=== PATIENT | male | born 1955 | race Caucasian/White ===

== ENCOUNTER → 2016-08-22 | Outpatient (CLI) | payer OTHER ==
[~2016-08-22] MED LIST: ASPI81TA25 PO; LORA10CA2 PO; SILO4CAP PO
[2016-08-22 13:33] LABS: PROSTATE SPECIFIC ANTIGEN 3.79 ng/ml (0.000-4.000); THYROID STIMULATING HORMONE 3.26 uIu/ml (0.300-4.500)
== END | disposition home or self-care (01) ==
LOC: C.LAB1850 11:36
PROVIDERS: ATTEND Internal Medicine
DX: R73.9 Hyperglycemia, unspecified (principal); R97.20 Elevated prostate specific antigen [PSA]

== ENCOUNTER → 2016-11-24 | Outpatient (CLI) | payer OTHER ==
[2016-11-24 17:39] LABS: BLOOD UREA NITROGEN 28 mg/dl (7-18); BUN/CREATININE RATIO 25.3 (10-20)
[2016-11-24 17:44] LABS: FREE PSA 0.55 ng/ml
== END | disposition home or self-care (01) ==
LOC: C.LAB1850 16:14
PROVIDERS: ATTEND Urology
DX: N42.31 Prostatic intraepithelial neoplasia (principal)

== ENCOUNTER → 2018-01-29 | Outpatient (CLI) | payer OTHER ==
[2018-01-29 11:18] LABS: BLOOD UREA NITROGEN 24 mg/dl (7-18); CREATININE 0.98 mg/dl (0.60-1.40)
== END | disposition home or self-care (01) ==
LOC: C.LAB1850 09:46
PROVIDERS: ATTEND Urology
DX: R97.20 Elevated prostate specific antigen [PSA] (principal); N40.1 Benign prostatic hyperplasia with lower urinary tract symptoms

== ENCOUNTER 2025-04-25 16:00 | Inpatient (IN) ==
--- NOTE | 2025-04-25 16:10 | Emergency Department Note ---
Impression & Plan Atrial fibrillation with rapid ventricular response, Elevated troponin ED Provider Note NAME: MAUREEN FRANCISCO AGE: 69 SEX: M : 1955 ARRIVES VIA: Ambulance INFORMANT: Patient ED PROVIDER(S): Miah Valerio DO CHIEF COMPLAINT: Palpitations HPI: Patient is a 69-year-old male with a past medical history of A-fib, hyperglycemia, palpitations, who presents to the ER for feeling his heart racing and irregularly. He notes he that he has a history of A-fib. For the past several weeks every third day he will feel fullness in his stomach and, up into his chest. He will feel his heart racing and he will check no be irregular. Sometimes he feels dizzy. He was at the PCPs office was sent in. Denies any headache or change in vision. No chest pain or shortness of breath currently. Denies any belly pain now. No nausea, vomiting, or diarrhea. No dysuria, urgency, or frequency. ADDITIONAL HISTORY OBTAINED: Per HPI Chronic Medical/Social Conditions Affecting Care: Per HPI PAST MEDICAL HISTORY:See Below PAST SURGICAL HISTORY:See Below FAMILY HISTORY:See Below SOCIAL HISTORY:See Below HOME MEDICATIONS:See Below ALLERGIES:See Below VITALS:See Below PHYSICAL EXAMINATION: GENERAL: Sitting up in bed, alert, well appearing, well nourished, no distress, non-toxic EYE EXAM: normal conjunctiva. OROPHARYNX: no exudate, no erythema, lips, buccal mucosa, and tongue normal and mucous membranes are moist NECK: supple, no nuchal rigidity, no adenopathy, non-tender LUNGS: Clear to auscultation. Normal chest wall mechanics HEART: Tachycardic and irregular regular, S1 normal and S2 normal ABDOMEN: abdomen soft, non-tender, normo-active bowel sounds, no masses, no rebound or guarding. UPPER EXTREMITIES: upper extremities are grossly normal. Radial pulses are equal bilaterally LOWER EXTREMITIES: No pitting edema. Calves are equal bilaterally NEURO EXAM: Normal sensorium, cranial nerves II-XII grossly intact, normal speech, no gross weakness of arms, no gross weakness of legs. MEDICAL DECISION MAKING: Patient is a 69-year-old male who presents ER with a past medical history of palpitations, A-fib not anticoagulated. IV was established blood work is obtained. Labs show no significant leukocytosis or anemia. BMP with slightly elevated chloride at 108. LFTs bilirubin is unremarkable. Troponin mildly elevated at 40. Lipase is normal. Chest x-ray was clean. EKG was consistent with A-fib with RVR. He was placed on Cardizem drip and given a bolus of 10. Heart rate trended down slightly to the 130s. He was rebolused with Cardizem and drip was titrated up to 10 at this point. Case was discussed with hospitalist for further evaluation management treatment. Consults/Care Managements Discussions: Per [facility] Triage Nursing notes reviewed. Limited review of prior medical records performed Vital Signs: reviewed and remarkable for tachycardic Differential diagnosis: Cardiac ischemia, aortic dissection, pulmonary embolism, pneumothorax, pneumonia, pericarditis, myocarditis, esophageal rupture, GERD, cholecystitis, pancreatitis, musculoskeletal, as well as other pathologies. ER treatment provided: See below Diagnostics interpreted by me include EKG and cardiac monitoring as listed below: -Cardiac Monitoring: An order was placed for continuous cardiac monitoring. The monitor shows a rate of 144 and A-fib rhythm. -ECG:A-fib rate of 144 Normal axis T wave inversion in the high lateral as well as septal leads QTc 436 with -Laboratory studies:Interpreted by me as stated above in MDM and shown below. Imaging studies: Xrays: As interpreted by me: Portable AP upright 1 view of the chest shows no focal trait CTs show: none Procedures:none Critical Care: I have personally spent 35 minutes of critical care time in the direct management of this patient. This includes bedside care, interpretation of diagnostic studies, and testing, discussion with consultants, patient, and family members, and other required patient management activities. This 35 minutes is in excess of all separately billable procedures. Past Med/Surg History Problem List (Updated 04/25/25 @ 19:25 by Miah Valerio DO) Elevated troponin (Acute) Atrial fibrillation with rapid ventricular response (Acute) Atrial fibrillation Hyperacusis, right ear Asymmetrical right sensorineural hearing loss SNHL (sensorineural hearing loss) Bilateral tinnitus Impacted cerumen of right ear History of oral surgery (Chronic) Acid reflux (Chronic) Benign localized prostatic hyperplasia with lower urinary tract symptoms (LUTS) (Chronic) Coronary artery disease (Chronic) Decreased hearing (Chronic) Deviated nasal septum (Chronic) Elevated prostate specific antigen (PSA) (Chronic) High grade prostatic intraepithelial neoplasia (Chronic) History of atrial fibrillation (Chronic) Hyperglycemia (Chronic) Hypertrophy of both inferior nasal turbinates (Chronic) Mitral regurgitation (Chronic) Palpitations (Chronic) Mitral valve prolapse (Chronic 02/06/13) Medical History (Updated 04/25/25 @ 19:25 by Miah Valerio DO) Abnormal TSH Cerumen impaction Encounter for screening for lipoid disorders Family History Father Prostate cancer Atrial fibrillation Grandfather Prostate cancer Grandfather No problems noted. Grandmother Brain cancer Brother Atrial fibrillation Other No family history of adverse response to anesthesia No family history of bleeding disorder Denies family history of Colon cancer Ovarian cancer Myocardial infarction Breast cancer Colorectal cancer Social History Smoking Status: Never smoker Second Hand Exposure: No; Do You Dip or Chew Tobacco: No; Hx Alcohol Use: No Hx Substance Use: No Preferred Language: Barbadian Communication Ability: Effective Visual Impairment: No Limitations Hearing Ability: Normal Client Care Coordinator Required: No Beliefs That Will Affect Care: None marital status: Single Current Living Situation: Alone current occupational status: employed current occupation: [employer] Supervisor Other Information That Helps Us Care for You: No Feels Safe at Home: Yes Safety Concerns: Feels Safe At This Time Assistive Devices: Glasses Allergies Allergies Allergy/AdvReac Type Severity Reaction Status Date / Time No Known Allergies Allergy Verified 04/25/25 17:10 Home Meds Home Medications Medication Instructions Recorded Confirmed alfuzosin 10 mg tablet,extended 10 mg PO HS 04/25/25 04/25/25 release 24 hr finasteride 5 mg tablet 5 mg PO HS 04/25/25 04/25/25 tadalafil 20 mg tablet (Cialis) 20 mg PO DIRECTED PRN sexual 04/25/25 04/25/25 activity vit C 250 mg-vit E 90 mg-zinc 40 1 tab PO BID 04/25/25 04/25/25 mg-copper 1 [id number] capsule (PreserVision AREDS-2) Results & Data (ED) Vital Signs Vital Signs - 24 hr 04/25/25 16:06 04/25/25 16:08 04/25/25 16:10 Temperature 36.5 C Temperature Source Oral Pulse Rate 147 H 143 H Pulse Rate [Apical] Respiratory Rate 15 Respiratory Effort / Characteristics Non-Labored Spontaneous Respiratory Depth Normal Blood Pressure 136/98 Blood Pressure [Right Arm] Blood Pressure Mean 110 Blood Pressure Mean [Right Arm] Pulse Oximetry 96 98 Oxygen Delivery Method Room Air Room Air Sepsis Recent Fever Within 48 Hours No Sepsis New/Unexplained Change in Mental Status N/A Sepsis Action Taken by Nursing No Action Required 04/25/25 17:00 Temperature Temperature Source Pulse Rate Pulse Rate [Apical] 144 H Respiratory Rate 16 Respiratory Effort / Characteristics Respiratory Depth Blood Pressure Blood Pressure [Right Arm] 123/92 Blood Pressure Mean Blood Pressure Mean [Right Arm] 102 Pulse Oximetry Oxygen Delivery Method Sepsis Recent Fever Within 48 Hours Sepsis New/Unexplained Change in Mental Status Sepsis Action Taken by Nursing Laboratory Data 04/25/25 16:18 04/25/25 16:18 Lab Results 04/25/25 Range/Units 16:18 WBC 7.54 (4.8-10.8) K/ul RBC 4.79 (4.70-6.10) M/uL Hgb 16.2 (14.0-18.0) g/dL Hct 45.1 (42.0-52.0) % MCV 94.2 (80.0-100.0) fL MCH 33.8 (25.0-34.0) pg MCHC 35.9 (32.0-36.0) g/dL RDW Std Deviation 39.6 (36.4-46.3) fL RDW Coeff of Aleshia 11.5 (11.5-14.5) % Plt Count 220 (130-400) K/uL MPV 10.8 (9.4-12.4) fL Immature Gran % (Auto) 0.5 % Neut % (Auto) 75.2 % Lymph % (Auto) 15.1 % Dewitt % (Auto) 8.4 % Eos % (Auto) 0.3 % Baso % (Auto) 0.5 % Neut # (Auto) 5.67 (1.40-6.50) K/uL Lymph # (Auto) 1.14 L (1.20-3.40) K/uL Dewitt # (Auto) 0.63 H (0.11-0.59) K/uL Eos # (Auto) 0.02 (0.00-0.50) K/uL Baso # (Auto) 0.04 (0.00-0.20) K/uL Immature Gran # (Auto) 0.04 (0.01-0.20) K/uL Sodium 142 (136-145) mmol/L Potassium 4.4 (3.5-5.1) mmol/L Chloride 108 H (98-107) mmol/L Carbon Dioxide 30 (21-32) mmol/L Anion Gap 4 (3-11) BUN 26 H (6-23) mg/dl Creatinine 1.03 (0.6-1.4) mg/dl Est Cr Clr Drug Dosing 78.3 ml/min eGFR 78.63 BUN/Creatinine Ratio 25.2 H (10-20) Glucose 115 H (70-99(Fasting)) mg/dl Calcium 9.4 (8.6-10.3) mg/dl Total Bilirubin 0.5 (0.2-1.0) mg/dl AST 25 (13-39) U/L ALT 20 (7-52) U/L Alkaline Phosphatase 49 (34-104) U/L Troponin I High Sens 39.9 H (0-20) pg/ml Total Protein 6.7 (6.0-8.3) gm/dl Albumin 4.0 (3.4-5.0) gm/dl Globulin 2.7 (2.5-4.0) gm/dl Albumin/Globulin Ratio 1.5 (0.9-2) Lipase 16 (11-82) U/L Administered Medications Magnesium Sulfate/Dextrose (Magnesium Sulfate / D5w) 1 gm in 100 mls @ 50 mls/hr IV ONE ONE Stop: 04/25/25 20:26 Last Admin: 04/25/25 18:39 Dose: 50 mls/hr Documented By: RAINA Metoprolol Tartrate (Metoprolol Tartrate 1 Mg/Ml Vial) 5 mg IV Q4 PRN PRN Reason: sbp > 185, dbp >95, HR >120 Stop: 05/25/25 18:26 Last Admin: 04/25/25 18:39 Dose: 5 mg Documented By: RAINA Discontinued Medications Diltiazem HCl (Diltiazem Hcl 5 Mg/Ml 5 Ml Vial) 10 mg IV NOW STA Stop: 04/25/25 16:07 Last Admin: 04/25/25 16:16 Dose: 10 mg Documented By: DEMETRIS Co-signed By: MR Diltiazem HCl (Diltiazem Hcl 5 Mg/Ml 5 Ml Vial) 10 mg IV NOW STA Stop: 04/25/25 17:02 Last Admin: 04/25/25 17:10 Dose: 10 mg Documented By: haydee Co-signed By: rory Diltiazem HCl 125 mg/ Dextrose 125 mls @ 5 mls/hr IV .Q24H JASIEL; Protocol Stop: 05/25/25 16:14 Last Titration: 04/25/25 18:31 Dose: Infused Documented By: RAINA Co-signed By: SMITHA Titration: 04/25/25 17:07 Dose: 10 mg/hr, 10 mls/hr Documented By: haydee Co-signed By: rory Admin: 04/25/25 16:24 Dose: 5 mg/hr, 5 mls/hr Documented By: DEMETRIS Co-signed By: haydee Miscellaneous (Stat Iv Infusion Titration Per Protocol) 1 each N/A NOW STA Stop: 04/25/25 16:07 Last Admin: 04/25/25 16:28 Dose: Not Given Documented By: DEMETRIS Imaging Data Radiologist's Impression: Chest X-Ray 04/25/25 16:06 Clinical History: Chest pain Technique: A frontal view of the chest was obtained Findings: There are no confluent pulmonary infiltrates. The heart size is within normal limits. No pleural effusion or pneumothorax is seen. There is no definite pulmonary nodule. No fracture is noted. No foreign body is seen Impression: No active disease Electronically signed by Alexander Rodríguez 04-25-2025 6:07 PM Discharge Plan Visit Data Chief Complaint: Cardiac Assessment Stated Complaint: Cardiac Assessment ED Provider: Miah Valerio Discharge Problem: Atrial fibrillation with rapid ventricular response, Elevated troponin Patient Disposition: Admitted As Inpatient Condition: Critical Discharge Instructions Interventions: ED Discharge Assessment Last Done: 04/25/25 18:09
[2025-04-25] MEDS: STAT IV Infusion **Titration per Protocol STA (16:28)
[2025-04-25 16:34] LABS: Hematocrit (blood only) 45.1 % (42.0-52.0); Hemoglobin 16.2 g/dL (14.0-18.0); Immature Granulocytes # (auto) 0.04 K/uL (0.01-0.20); Immature Granulocytes % (auto) 0.5 %; Mean Corpuscular Hemoglobin 33.8 pg (25.0-34.0); Mean Corpuscular Volume 94.2 fL (80.0-100.0); Platelet Count 220 K/uL (130-400); RDW Standard Deviation 39.6 fL (36.4-46.3); Red Blood Count 4.79 M/uL (4.70-6.10); White Blood Count 7.54 K/ul (4.8-10.8)
[2025-04-25 16:52] LABS: Alanine Aminotransferase 20.0 U/L (7-52); Albumin Globulin Ratio 1.5 (0.9-2); Albumin Level 4.0 gm/dl (3.4-5.0); Alkaline Phosphatase 49.0 U/L (34-104); Anion Gap 4.0 (3-11); Bilirubin,Total 0.5 mg/dl (0.2-1.0); Blood Urea Nitrogen 26.0 mg/dl (6-23); Calcium 9.4 mg/dl (8.6-10.3); Carbon Dioxide 30.0 mmol/L (21-32); Chloride 108.0 mmol/L (98-107); Creatinine Clr Calc Pharmacy 78.3 ml/min; Globulin 2.7 gm/dl (2.5-4.0); Glucose 115.0 mg/dl (70-99(Fasting)); Lipase 16.0 U/L (11-82); Potassium 4.4 mmol/L (3.5-5.1); Sodium 142.0 mmol/L (136-145); Total Protein 6.7 gm/dl (6.0-8.3)
--- NOTE | 2025-04-25 17:23 | History & Physical Report ---
Date of Service April 25, 2025 Assessment & Plan (1) Atrial fibrillation: (2) Benign localized prostatic hyperplasia with lower urinary tract symptoms (LUTS): (3) SNHL (sensorineural hearing loss): Plan 69-year-old male with history of atrial fibrillation prevention with a rapid ventricular rate and fatigue and dizziness. This is been prolonged from his typical events. #Atrial fibrillation. Patient was given diltiazem in the emergency department without much improvement. Patient will be converted to metoprolol to tartrate 25 twice daily with as needed IV metoprolol for backup. Consideration of using intravenous digoxin if the patient has no improvement overnight. Patient will also have his magnesium checked his TSH checked and be given a gram of magnesium. Patient is started on therapeutic anticoagulation although his Parviz vas score is low he does seem to have more paroxysmal atrial fibs and places him at risk for thromboembolism. The patient is ordered a echocardiogram and cardiology consult will be considered if this is more persistent and stubborn #Elevated troponin this is likely demand ischemia in the face of his rapid rate. He has no cardiac symptoms or changes on EKG #BPH patient continues on fluvastatin and finasteride DVT prevention is therapeutic heparin dosing History of Present Illness Primary Care Provider: Tre Hopper MD 69-year-old male with a past medical history of A-fib, hyperglycemia, palpitations, who presents to the ER for feeling his heart racing and irregular. He notes he that he has a history of A-fib with a brief hospital stay in 2012.. Patient is having consistent recurrent palpitations as he feels his atrial fibrillation usually in the morning lasting 2 hours resolving with rest. Patient states his family has a history of atrial fibrillation has had 2 brothers who have had cardiac ablation but he cannot recall where they had that done. The patient has not been on any anticoagulation in the past but does recount a story where his father was taken off anticoagulation for atrial fibrillation and promptly of his stroke. patient denies any recent bleeding or bruising on the melena he has no chest pain associate with his atrial fibrillation but he does complain of some dizziness In the emergency department EKG shows atrial fibrillation versus flutter rate of 142, chest x-ray was without heart failure Allergies Allergy/AdvReac Type Severity Reaction Status Date / Time No Known Allergies Allergy Verified 04/25/25 17:10 Home Medications Medication Instructions Recorded Confirmed Type alfuzosin 10 mg tablet,extended 10 mg PO HS 04/25/25 04/25/25 History release 24 hr finasteride 5 mg tablet 5 mg PO HS 04/25/25 04/25/25 History tadalafil 20 mg tablet (Cialis) 20 mg PO DIRECTED PRN sexual 04/25/25 04/25/25 History activity vit C 250 mg-vit E 90 mg-zinc 40 1 tab PO BID 04/25/25 04/25/25 History mg-copper 1 [id number] capsule (PreserVision AREDS-2) Past Med/Surg History Problem List (Updated 04/25/25 @ 18:07 by Ajit Woodall MD) Atrial fibrillation Hyperacusis, right ear Asymmetrical right sensorineural hearing loss SNHL (sensorineural hearing loss) Bilateral tinnitus Impacted cerumen of right ear History of oral surgery (Chronic) Acid reflux (Chronic) Benign localized prostatic hyperplasia with lower urinary tract symptoms (LUTS) (Chronic) Coronary artery disease (Chronic) Decreased hearing (Chronic) Deviated nasal septum (Chronic) Elevated prostate specific antigen (PSA) (Chronic) High grade prostatic intraepithelial neoplasia (Chronic) History of atrial fibrillation (Chronic) Hyperglycemia (Chronic) Hypertrophy of both inferior nasal turbinates (Chronic) Mitral regurgitation (Chronic) Palpitations (Chronic) Mitral valve prolapse (Chronic 02/06/13) Medical History (Updated 04/25/25 @ 18:07 by Ajit Woodall MD) Abnormal TSH Cerumen impaction Encounter for screening for lipoid disorders Family History Father Prostate cancer Atrial fibrillation Grandfather Prostate cancer Grandfather No problems noted. Grandmother Brain cancer Brother Atrial fibrillation Other No family history of adverse response to anesthesia No family history of bleeding disorder Denies family history of Colon cancer Ovarian cancer Myocardial infarction Breast cancer Colorectal cancer Social History Smoking Status: Never smoker Second Hand Exposure: No; Do You Dip or Chew Tobacco: No; Hx Alcohol Use: No Hx Substance Use: No Preferred Language: Kazakh Visual Impairment: No Limitations Hearing Ability: Normal marital status: Single Current Living Situation: Alone current occupational status: employed current occupation: Senior Financial Consultant Feels Safe at Home: Yes Physical Exam Physical Exam: Patient is pleasant he is well-spoken he can speak in full sentences he is slightly hard of hearing Cardiac exam is severely tachycardic it seems to be irregular there are no direct murmurs that are heard Lungs are clear without wheezes or crackles good excursion Abdomen is with umbilical hernia which is easily reducible. Otherwise he has normal bowel sounds soft and nontender Neurologically he is nonfocal and intact he can cooperate move all extremities No facial asymmetry Extremities are without edema Results & Data Results & Data Vital Signs (Past 12 Hours) Vital Signs Temp Pulse Pulse Resp BP BP Pulse Ox 04/25/25 17:00 144 H 16 123/92 04/25/25 16:10 97.7 F 143 H 15 136/98 98 04/25/25 16:08 147 H 04/25/25 16:06 96 O2 Del Method 04/25/25 17:00 04/25/25 16:10 Room Air 04/25/25 16:08 04/25/25 16:06 Room Air Laboratory Results Reviewed CBC reviewed chemistryordered magnesium and TSH reviewed troponin troponin slightly elevated without symptoms or ACS on EKG suspect demand ischemia PG Care Time/CCT Total # of Minutes Spent Total Time Spent with Patient: Total time spent is greater than 50% in coordination of care (as documented) at patient's floor/unit and/or counseling patient: Coding Level of Care Code 28074 INT INP/OBS CARE 3/75MIN Diagnoses Atrial fibrillation I48.91 Benign localized prostatic hyperplasia with lower urinary tract symptoms (LUTS) N40.1 SNHL (sensorineural hearing loss) H90.5
--- NOTE | 2025-04-25 18:07 | XRay Report ---
Clinical History: Chest pain Technique: A frontal view of the chest was obtained Findings: There are no confluent pulmonary infiltrates. The heart size is within normal limits. No pleural effusion or pneumothorax is seen. There is no definite pulmonary nodule. No fracture is noted. No foreign body is seen Impression: No active disease Electronically signed by Alexander Rodríguez 04-25-2025 6:07 PM
[2025-04-25] MEDS ORDERED: ACETAMINOPHEN 325 MG TAB PO PRN (18:27)
[2025-04-25] MEDS: MAGNESIUM SULFATE / D5W 1 GM/100 ML BAG IV ONE (18:39)
[2025-04-25] MEDS: METOPROLOL TARTRATE 1 MG/ML VIAL IV PRN (18:39)
[2025-04-25] MEDS: HEPARIN SOD (PORCINE) 1000 UNIT/ML IV ONE (19:31)
[2025-04-25] MEDS: METOPROLOL TARTRATE 25 MG TAB PO SCH (19:56)
[2025-04-25] MEDS: TAMSULOSIN HCL 0.4 MG CAP PO SCH (19:58)
[2025-04-25] MEDS: FINASTERIDE 5 MG TAB PO SCH (19:58)
[2025-04-25] MEDS: Heparin IV Adult Wt-Based Standard w/ INITIAL Bolus Protocol IV STA (21:29)
[2025-04-25] MEDS: HEPARIN 25000 UNIT/500 ML D5W 25,000 UNITS/500 ML BAG IV SCH (21:29)
[2025-04-25 21:31] LABS: Magnesium 2.5 mg/dl (1.7-2.4)
[2025-04-25 21:40] LABS: INR 1.2 (0.9-1.1); Prothrombin Time 12.4 Seconds (9.0-12.0)
[2025-04-25 21:48] LABS: Thyroid Stimulating Hormone 3.769 uIu/ml (0.300-4.500)
[2025-04-25] MEDS: METOPROLOL TARTRATE 1 MG/ML VIAL IV STA (23:37)
[2025-04-26] MEDS: METOPROLOL TARTRATE 1 MG/ML VIAL IV STA (00:13)
[2025-04-26] MEDS ORDERED: AMIODARONE IV BOLUS & DRIP IV STA (00:39)
[2025-04-26] MEDS ORDERED: 0.2 MICRON FILTER SET 1 EACH IV STA (00:39)
[2025-04-26] MEDS ORDERED: STAT IV Infusion **Titration per Protocol STA (00:39)
[2025-04-26] MEDS: SODIUM CHLORIDE 0.9% 1,000 ML IV ONE ×3 (00:47→02:52)
[2025-04-26] MEDS: AMIODARONE / D5W 150 MG/100 ML BAG IV STA (01:10)
[2025-04-26] MEDS: AMIODARONE / D5W 360 MG/200 ML BAG IV ONE (01:26)
[2025-04-26] MEDS ORDERED: SODIUM CHLORIDE 0.9% 1,000 ML IV ONE (02:10)
[2025-04-26] MEDS: ATROPINE SULFATE 0.1 MG/ML 10ML SYR IV ONE (02:49)
[2025-04-26] MEDS: ATROPINE SULFATE 0.1 MG/ML 10ML SYR IV STA (03:06)
[2025-04-26 03:39] LABS: Hematocrit (blood only) 40.7 % (42.0-52.0); Hemoglobin 14.3 g/dL (14.0-18.0); Mean Corpuscular Hemoglobin 33.5 pg (25.0-34.0); Mean Corpuscular Volume 95.3 fL (80.0-100.0); Platelet Count 197 K/uL (130-400); RDW Standard Deviation 40.6 fL (36.4-46.3); Red Blood Count 4.27 M/uL (4.70-6.10); White Blood Count 7.00 K/ul (4.8-10.8)
[2025-04-26 03:55] LABS: Anion Gap 4.0 (3-11); Blood Urea Nitrogen 24.0 mg/dl (6-23); Calcium 8.2 mg/dl (8.6-10.3); Carbon Dioxide 26.0 mmol/L (21-32); Chloride 111.0 mmol/L (98-107); Creatinine Clr Calc Pharmacy 68.3 ml/min; Glucose 126.0 mg/dl (70-99(Fasting)); Magnesium 2.0 mg/dl (1.7-2.4); Potassium 4.5 mmol/L (3.5-5.1); Sodium 141.0 mmol/L (136-145)
[2025-04-26 04:09] LABS: ANTI-Xa, UFH(UnfractionatedHep 0.29 IU/ml (0.3-0.7)
[2025-04-26] MEDS: AMIODARONE / D5W 360 MG/200 ML BAG IV SCH (08:10)
--- NOTE | 2025-04-26 09:53 | Cardiology Consultation ---
Date of Consultation April 26, 2025 Assessment & Plan (1) Atrial fibrillation with rapid ventricular response: (2) Elevated troponin: (3) Coronary artery disease: (4) Asymmetric septal hypertrophy: (5) Anticoagulant long-term use: Plan 1. Atrial fibrillation: He has a long history of atrial fibrillation and has had worsening recently, both in frequency and duration. The episodes do not seem to be more symptomatic but are becoming bothersome due to their frequency. He has had none on IV amiodarone. This may be part of the natural history of atrial fibrillation, however with his echocardiographic abnormalities that may play a part in the progression. I discussed options with him including ablation (he has a brother who had ablation) as well as medical therapy to decrease his burden. He is interested in pursuing medical therapy, although we could move directly to ablation I would prefer to try medical therapy first. I am going to discontinue amiodarone today, we can start an antiarrhythmic tomorrow but I do not want to overlap tonight. 2. Elevated troponin: He does have a mildly elevated troponin, he has known coronary artery disease and his echocardiogram is abnormal. We may want to consider stress testing. 3. Coronary disease: He has known coronary artery disease based on his history, and he is not been on treatment for it. This certainly could have progressed. His echocardiogram is abnormal which may make a stress echo hard to interpret, a nuclear test may be abnormal if he has some type of amyloidosis. I would consider cardiac catheterization, I discussed with Dr. Gaona and he is in agreement. I will tentatively plan on tomorrow. 4. Asymmetric septal hypertrophy: I am worried about amyloid, his protein is not elevated but I am going to order the protein electrophoresis. We can consider a cardiac MRI as an outpatient. 5. Anticoagulation: His [id number] score is relatively low, but with his abnormal echo and his age I would recommend anticoagulation. He is on heparin now, I would continue this for now with plans to switch him to Eliquis before discharge. History of Present Illness Reason for Consultation: Atrial fibrillation Attending Physician: Abram Paris History of Present Illness This is a 69-year-old male with a long history of palpitations and reported atrial fibrillation. I saw him in the office on March 28, 2013 for palpitations, his symptoms were compatible with atrial fibrillation and it was reported to have been recorded about 4 years before that visit although I did not have recordings. I had tried to obtain his records but I do not believe we ever got them. He was also reported as having luminal irregularities on a prior cardiac catheterization but have not seen that report. I had recommended a follow-up with me but that never occurred and I only saw him the one time. I did recommend risk factor modification for what sounded like coronary disease at the time, however he does not appear to be on risk factor modification. This visit to the emergency room was prompted by palpitations and in the emergency room he was noted to be in atrial fibrillation with a rapid ventricular response at 144 bpm. This spontaneously converted to sinus rhythm around 7 PM that evening, however recurred starting at around 11 PM and then converted again to sinus around 3 AM this morning. The heart rate was around 140 bpm on both occasions. High-sensitivity troponin on presentation was 40, this increased slightly to 52 about 4 hours later and 48 about 9 hours after presentation. The only cholesterol determination I see in his chart was from 2018 at that time his total cholesterol was 151 with an HDL of 52, yielding a non-HDL cholesterol of 99. This is good for primary prevention but if he did have coronary artery disease it is not ideal. Liver function test this admission are normal. He tells me that he has had a fairly stable pattern of atrial fibrillation every month or 2 for quite a few years, but more recently the episodes have increased in frequency and duration. Over the last month he has had several episodes per week. He does not seem to be too bothered by the rate but he does notice them. He has not had strokelike symptoms and he has not had lightheadedness or dizziness or chest discomfort. Allergies Allergy/AdvReac Type Severity Reaction Status Date / Time No Known Allergies Allergy Verified 04/25/25 17:10 Home Medications Medication Instructions Recorded Confirmed Type alfuzosin 10 mg tablet,extended 10 mg PO HS 04/25/25 04/25/25 History release 24 hr finasteride 5 mg tablet 5 mg PO HS 04/25/25 04/25/25 History tadalafil 20 mg tablet (Cialis) 20 mg PO DIRECTED PRN sexual 04/25/25 04/25/25 History activity vit C 250 mg-vit E 90 mg-zinc 40 1 tab PO BID 04/25/25 04/25/25 History mg-copper 1 dd-ozejmg-whkedt capsule (PreserVision AREDS-2) Patient History Medical History (Updated 04/26/25 @ 15:27 by Joss Valladares MD) Abnormal TSH Cerumen impaction Encounter for screening for lipoid disorders Family History Father Prostate cancer Atrial fibrillation Grandfather Prostate cancer Grandfather No problems noted. Grandmother Brain cancer Brother Atrial fibrillation Other No family history of adverse response to anesthesia No family history of bleeding disorder Denies family history of Colon cancer Ovarian cancer Myocardial infarction Breast cancer Colorectal cancer Social History Smoking Status: Never smoker Second Hand Exposure: No; Do You Dip or Chew Tobacco: No; Hx Alcohol Use: No Hx Substance Use: No Preferred Language: Angolan Communication Ability: Effective Visual Impairment: No Limitations Hearing Ability: Normal Assistant Program Director Required: No Beliefs That Will Affect Care: None marital status: Single Current Living Situation: Alone current occupational status: employed current occupation: [employer] Other Information That Helps Us Care for You: No Feels Safe at Home: Yes Safety Concerns: Feels Safe At This Time Assistive Devices: None Review of Systems Review of Systems: All systems reviewed & are unremarkable except as noted in HPI & below Physical Exam Physical Exam: Constitutional: Alert, cooperative and in no distress. HEENT: Unremarkable Neck: No jugular venous distention, carotid pulses are normal and equal bilaterally without bruits. Pulmonary: Clear to auscultation bilaterally. Cardiac: Regular rhythm with no murmur, gallop or rub. Abdomen: Soft, nontender with normal bowel sounds. Extremities: No edema. Neurologic: No focal findings. Skin: No rash, ecchymoses or petechiae. Results & Data Vital Signs (Past 12 Hours) Vital Signs Temp Pulse Pulse Resp BP BP Pulse Ox 04/26/25 07:48 36.7 C 54 L 19 99/62 L 97 04/26/25 06:37 57 L 95/61 L 04/26/25 05:19 55 L 86/56 L 04/26/25 04:23 56 L 90/56 L 04/26/25 04:09 55 L 87/56 L 04/26/25 03:44 36.4 C L 57 L 16 84/59 L 97 04/26/25 03:04 56 L 99/76 L 04/26/25 02:58 41 L 04/26/25 02:54 135 H 82/56 L 04/26/25 02:49 135 H 79/52 L 04/26/25 02:32 134 H 97/62 L 04/26/25 02:21 133 H 105/76 04/26/25 02:15 134 H 88/60 L 96 04/26/25 02:08 134 H 83/55 L 04/26/25 01:41 133 H 80/56 L 04/26/25 01:16 143 H 90/63 L 96 04/26/25 00:51 143 H 101/65 04/26/25 00:36 142 H 93/67 L 04/26/25 00:34 140 H 88/56 L 04/26/25 00:13 142 H 111/76 04/25/25 23:55 141 H 114/79 04/25/25 23:37 140 H 119/89 04/25/25 23:22 141 H 112/79 04/25/25 23:07 145 H 112/83 04/25/25 23:00 145 H 18 112/83 97 O2 Del Method 04/26/25 07:48 Room Air 04/26/25 06:37 04/26/25 05:19 04/26/25 04:23 04/26/25 04:09 04/26/25 03:44 Room Air 04/26/25 03:04 04/26/25 02:58 04/26/25 02:54 04/26/25 02:49 04/26/25 02:32 04/26/25 02:21 04/26/25 02:15 Room Air 04/26/25 02:08 04/26/25 01:41 04/26/25 01:16 Room Air 04/26/25 00:51 04/26/25 00:36 04/26/25 00:34 04/26/25 00:13 04/25/25 23:55 04/25/25 23:37 04/25/25 23:22 04/25/25 23:07 04/25/25 23:00 Room Air Laboratory Results Cardiac Enzymes 11/11/25 11/11/25 11/12/25 Range/Units 16:18 20:57 03:16 AST 25 (13-39) U/L Troponin I High Sens 39.9 H 51.9 H* D 47.8 H (0-20) pg/ml Coagulation 04/25/25 Range/Units 20:57 PT 12.4 H (9.0-12.0) Seconds CBC 04/25/25 04/26/25 Range/Units 16:18 03:16 WBC 7.54 7.00 (4.8-10.8) K/ul RBC 4.79 4.27 L (4.70-6.10) M/uL Hgb 16.2 14.3 (14.0-18.0) g/dL Hct 45.1 40.7 L (42.0-52.0) % Plt Count 220 197 (130-400) K/uL Neut # (Auto) 5.67 (1.40-6.50) K/uL Lymph # (Auto) 1.14 L (1.20-3.40) K/uL [place] # (Auto) 0.63 H (0.11-0.59) K/uL Eos # (Auto) 0.02 (0.00-0.50) K/uL Baso # (Auto) 0.04 (0.00-0.20) K/uL Comprehensive Metabolic Panel 04/25/25 04/26/25 Range/Units 16:18 03:16 Sodium 142 141 (136-145) mmol/L Potassium 4.4 4.5 (3.5-5.1) mmol/L Chloride 108 H 111 H (98-107) mmol/L Carbon Dioxide 30 26 (21-32) mmol/L BUN 26 H 24 H (6-23) mg/dl Creatinine 1.03 1.18 (0.6-1.4) mg/dl Glucose 115 H 126 H (70-99(Fasting)) mg/dl Calcium 9.4 8.2 L (8.6-10.3) mg/dl AST 25 (13-39) U/L ALT 20 (7-52) U/L Alkaline Phosphatase 49 (34-104) U/L Total Protein 6.7 (6.0-8.3) gm/dl Albumin 4.0 (3.4-5.0) gm/dl Intake and Output 04/25/25 04/26/25 04/26/25 22:59 06:59 14:59 Intake Total 217.583 / 3510.525 3292.942 / 3510.525 Output Total 250 / 500 250 / 500 75 / 75 Balance -32.417 / 3010.525 3042.942 / 3010.525 -75 / -75 Intake: IV 117.583 / 3410.525 3292.942 / 3410.525 Amiodarone / D5w 150 mg In 100 100 / 100 ml @ 600 mls/hr IV NOW [facility] Rx#: [id number] Amiodarone / D5w 360 mg In 200 58.275 / 58.275 ml @ 1 MG/MIN 33.333 mls/hr IV [facility] Rx#:[id number] Heparin 40916 Unit/500 ml D5w 134.667 / 134.667 25,000 units In 500 ml @ 1,100 UNITS/HR 22 mls/hr IV .[id number] [facility] Rx#:[id number] Magnesium Sulfate / D5w 1 gm In 100 / 100 100 ml @ 50 mls/hr IV [facility] Rx#:[id number] Sodium Chloride 0.9% 1,000 ml @ 3000 / 3000 999 mls/hr IV .Q1H1M [facility] Rx#: [id number] dilTIAZem HCL 125 mg In 17.583 / 17.583 Dextrose 5% 100 ml @ 5 MG/HR 5 mls/hr IV .Q24H [facility] Rx#: [id number] Oral 100 / 100 0 / 100 Output: Urine 250 / 500 250 / 500 75 / 75 Other: Other Intake Source NPO Weight 94.9 kg 96.4 kg Weight Measurement Method Chair Scale Built in [facility] Diagnostic Findings Telemetry: Paroxysmal atrial fibrillation as described in the HPI, otherwise sinus rhythm. Echocardiogram: He does have mild left ventricular dysfunction or at least low normal LV function overall but he has a thickened septum with echogenicity. I would consider amyloid. PG Care Time/CCT Total # of Minutes Spent Total Time Spent with Patient: Total time spent is greater than 50% in coordination of care (as documented) at patient's floor/unit and/or counseling patient: Coding Level of Care Code 19212 INT INP/OBS CARE 3/75MIN Diagnoses Atrial fibrillation with rapid ventricular response I48.91 Elevated troponin R79.89 Coronary artery disease I25.10 Asymmetric septal hypertrophy I51.7 Anticoagulant long-term use Z79.01
[2025-04-26 11:27] LABS: ANTI-Xa, UFH(UnfractionatedHep 0.45 IU/ml (0.3-0.7)
--- NOTE | 2025-04-26 16:20 | XCELERA ---
[id number] [email or web address]\[id number]___[id number]
--- NOTE | 2025-04-26 22:44 | Hospitalist Progress Note ---
Date of Service April 26, 2025 Assessment & Plan (1) Atrial fibrillation: (2) Benign localized prostatic hyperplasia with lower urinary tract symptoms (LUTS): (3) SNHL (sensorineural hearing loss): Plan 69-year-old male with history of atrial fibrillation prevention with a rapid ventricular rate and fatigue and dizziness. This is been prolonged from his typical events. #Atrial fibrillation. Patient was given diltiazem in the emergency department without much improvement. Patient will be converted to metoprolol to tartrate 25 twice daily with as needed IV metoprolol for backup. Consideration of using intravenous digoxin if the patient has no improvement overnight. Patient will also have his magnesium checked his TSH checked and be given a gram of magnesium. Patient is started on therapeutic anticoagulation although his Parviz vas score is low he does seem to have more paroxysmal atrial fibs and places him at risk for thromboembolism. The patient is ordered a echocardiogram and cardiology consult will be considered if this is more persistent and stubborn. On 04/26, heart rate appears to be abck to sinus. Patient now on amiodarone, likely helped return patient to sinus. Awaiting input from cardio. #Elevated troponin this is likely demand ischemia in the face of his rapid rate. He has no cardiac symptoms or changes on EKG #BPH patient continues on fluvastatin and finasteride DVT prevention is therapeutic heparin dosing Admission and Anticipated Discharge Date Admission Date: April 25, 2025 Subjective Patient reports no new symptoms. Patient feels well. Physical Exam Constitutional: WD/WN, vitals as above Respiratory: normal respiratory effort, lungs clear to auscultation Cardiovascular: RRR, no murmur, no edema Gastrointestinal (Abdomen): normal bowel sounds, soft, nontender, no hepatosplenomegaly Neurologic: PERRL, EOMI, accommodation nl, no face palsy, no dysarthria Psychiatric: A+Ox3, euthymic affect Results & Data Results & Data Vital Signs (Past 12 Hours) Vital Signs Temp Pulse Pulse Resp BP Pulse Ox O2 Del Method 04/26/25 19:13 36.8 C 56 L 16 112/70 96 Room Air 04/26/25 16:06 36.4 C L 52 L 20 106/68 96 Room Air 04/26/25 15:03 54 L 04/26/25 11:48 36.9 C 54 L 20 97/63 L 97 Room Air PG Care Time/CCT Total # of Minutes Spent Total Time Spent with Patient: Total time spent is greater than 50% in coordination of care (as documented) at patient's floor/unit and/or counseling patient: Coding Level of Care Code 68621 SUB INP/OBS CARE 3/50MIN Diagnoses Atrial fibrillation I48.91 Benign localized prostatic hyperplasia with lower urinary tract symptoms (LUTS) N40.1 SNHL (sensorineural hearing loss) H90.5
[2025-04-27 05:53] LABS: Hematocrit (blood only) 42.0 % (42.0-52.0); Hemoglobin 14.5 g/dL (14.0-18.0); Mean Corpuscular Hemoglobin 32.8 pg (25.0-34.0); Mean Corpuscular Volume 95.0 fL (80.0-100.0); Platelet Count 181 K/uL (130-400); RDW Standard Deviation 40.3 fL (36.4-46.3); Red Blood Count 4.42 M/uL (4.70-6.10); White Blood Count 4.94 K/ul (4.8-10.8)
[2025-04-27 06:09] LABS: Anion Gap 3.0 (3-11); Blood Urea Nitrogen 25.0 mg/dl (6-23); Calcium 9.0 mg/dl (8.6-10.3); Carbon Dioxide 28.0 mmol/L (21-32); Chloride 108.0 mmol/L (98-107); Creatinine Clr Calc Pharmacy 75.2 ml/min; Glucose 107.0 mg/dl (70-99(Fasting)); Magnesium 2.0 mg/dl (1.7-2.4); Potassium 4.7 mmol/L (3.5-5.1); Sodium 139.0 mmol/L (136-145)
[2025-04-27 06:42] LABS: ANTI-Xa, LMWH(Low Molecular Wt 0.48 IU/ML (< 0.10)
--- NOTE | 2025-04-27 11:17 | Cardiology Progress Note ---
Date of Service April 27, 2025 Assessment & Plan (1) Atrial fibrillation with rapid ventricular response: (2) Elevated troponin: (3) Coronary artery disease: (4) Asymmetric septal hypertrophy: (5) Anticoagulant long-term use: Plan 1. Atrial fibrillation: He has a long history of atrial fibrillation and has had worsening recently, both in frequency and duration. The episodes do not seem to be more symptomatic but are becoming bothersome due to their frequency. He had none on IV amiodarone but with discontinuation he went back into atrial fibrillation after 12 to 16 hours, which is not too surprising but does indicate that he has a significant burden without antiarrhythmic therapy. This increase in burden may be part of the natural history of atrial fibrillation, however with his echocardiographic abnormalities that may also play a part in the progression. I am going to restart his AV kali blocking medications (his metoprolol had been held which I did not realize), I am going to give him 50 mg of metoprolol tartrate now and restart 25 mg twice a day but when he goes home we can switch this to long-acting. I am also going to start Multaq, it is not as effective as amiodarone but perhaps since amiodarone worked well Multaq will. Although he thinks that verapamil helped his "arrhythmia" in college, it is not particularly effective for atrial fibrillation, other than achieving some rate control but I would prefer to use beta-blockade. It could be used however. 2. Elevated troponin: He did have a mildly elevated troponin, he has known coronary artery disease and his echocardiogram is abnormal. We should investigate further for coronary artery disease. 3. Coronary disease: He has known coronary artery disease based on his history, and he is not been on treatment for it. This certainly could have progressed. His echocardiogram is abnormal which may make a stress echo hard to interpret, a nuclear test may be abnormal if he has some type of amyloidosis. I would consider cardiac catheterization, I discussed with Dr. Gaona and he is in agreement. He is on the schedule today, time permitting. 4. Asymmetric septal hypertrophy: I am worried about amyloid, his total protein is not elevated but I did order the protein electrophoresis. We can consider a cardiac MRI as an outpatient. 5. Anticoagulation: His [id number] score is relatively low, but with his abnormal echo and his age I would recommend anticoagulation. He is on heparin now, I would continue this for now with plans to switch him to Eliquis before discharge. Admission and Anticipated Discharge Date Admission Date: April 25, 2025 Subjective He has returned to atrial fibrillation this morning, he tells me he "can tell when he is going to go into it" because he feels an "arrhythmia" before the atrial fibrillation, I believe he means premature beats. He recalls having this in college and being given verapamil and wonders if that would help now. While in the arrhythmia he feels uncomfortable and has palpitations but has no hemodynamic symptoms. It started just before 10 AM today. Physical Exam Physical Exam: Constitutional: Alert, cooperative and in no distress. HEENT: Unremarkable Neck: No jugular venous distention, carotid pulses are irregular but otherwise normal and equal bilaterally without bruits. Pulmonary: Clear to auscultation bilaterally. Cardiac: Irregular rhythm with no murmur, gallop or rub. Abdomen: Soft, nontender with normal bowel sounds. Extremities: No edema. Neurologic: No focal findings. Skin: No rash, ecchymoses or petechiae. Results & Data Vital Signs (Past 12 Hours) Vital Signs Temp Pulse Pulse Resp BP Pulse Ox O2 Del Method 04/27/25 07:35 36.4 C L 61 19 124/72 97 Room Air 04/27/25 07:30 55 L 04/27/25 03:07 36.5 C 53 L 16 121/77 95 Room Air Laboratory Results CBC 04/27/25 Range/Units 05:30 WBC 4.94 (4.8-10.8) K/ul RBC 4.42 L (4.70-6.10) M/uL Hgb 14.5 (14.0-18.0) g/dL Hct 42.0 (42.0-52.0) % Plt Count 181 (130-400) K/uL Comprehensive Metabolic Panel 04/27/25 Range/Units 05:30 Sodium 139 (136-145) mmol/L Potassium 4.7 (3.5-5.1) mmol/L Chloride 108 H (98-107) mmol/L Carbon Dioxide 28 (21-32) mmol/L BUN 25 H (6-23) mg/dl Creatinine 1.08 (0.6-1.4) mg/dl Glucose 107 H (70-99(Fasting)) mg/dl Calcium 9.0 (8.6-10.3) mg/dl Intake and Output 04/26/25 04/27/25 04/27/25 22:59 06:59 14:59 Intake Total 903.3 / 1054.367 240.533 / 240.533 Output Total 500 / 725 300 / 300 Balance 403.3 / 329.367 -59.467 / -59.467 Intake: IV 201.3 / 352.367 240.533 / 240.533 Heparin 14129 Unit/500 ml D5w 201.3 / 352.367 240.533 / 240.533 25,000 units In 500 ml @ 1,100 UNITS/HR 22 mls/hr IV .[id number] [facility] Rx#:[id number] Oral 702 / 702 Output: Urine 500 / 725 300 / 300 Other: Other Intake Source NPO # Unmeasured Voids 1 Weight 95.4 kg Weight Measurement Method Built in [facility] Diagnostic Findings Telemetry: Onset of atrial fibrillation around 10 AM today, heart rate around 140 to 150 bpm. PG Care Time/CCT Total # of Minutes Spent Total Time Spent with Patient: Total time spent is greater than 50% in coordination of care (as documented) at patient's floor/unit and/or counseling patient: Coding Level of Care Code 00716 SUB INP/OBS CARE 3/50MIN Diagnoses Atrial fibrillation with rapid ventricular response I48.91 Elevated troponin R79.89 Coronary artery disease I25.10 Asymmetric septal hypertrophy I51.7 Anticoagulant long-term use Z79.01
[2025-04-27] MEDS: METOPROLOL TARTRATE 25 MG TAB PO ONE (11:20)
[2025-04-27] MEDS: METOPROLOL TARTRATE 50 MG TAB PO STA (11:20)
[2025-04-27] MEDS: DRONEDARONE HCL 400 MG TAB PO SCH (12:27)
--- NOTE | 2025-04-27 14:53 | Pre Anesthesia Assessment ---
Date of Service April 27, 2025 Pre Sedation Assessment Vital Signs Temp Pulse Pulse Resp BP Pulse Ox O2 Del Method 04/27/25 11:38 36.5 C 113 H 19 104/74 93 Room Air 04/27/25 09:00 Room Air 04/27/25 07:35 36.4 C L 61 19 124/72 97 Room Air 04/27/25 07:30 55 L 04/27/25 03:07 36.5 C 53 L 16 121/77 95 Room Air 04/26/25 23:13 36.6 C 67 18 121/77 97 Room Air 04/26/25 21:47 48 L 04/26/25 19:13 36.8 C 56 L 16 112/70 96 Room Air 04/26/25 16:06 36.4 C L 52 L 20 106/68 96 Room Air 04/26/25 15:03 54 L Cardiovascular RRR, no murmur, no edema Respiratory normal respiratory effort, lungs clear to auscultation Pre-Sedation Airway Assessment Smoking Status: Never smoker Mallampati 2 ASA 3 Notes The planned sedation has been discussed with the patient. Informed Consent was obtained. I have identified the patient, determined the appropriateness of sedation and have assessed the patient immediately prior to the procedure. All medicine(s) and interventions are by my order.
[2025-04-27] MEDS: NITROGLYCERIN/D5W 100MCG/ML 20ML SYR ONE (15:10)
[2025-04-27] MEDS: niCARdipine 2,000 MCG/20 ML SYR ONE (15:10)
[2025-04-27] MEDS: OPTIRAY 350 ONE (15:28)
[2025-04-27] MEDS: MIDAZOLAM HCL 1 MG/ML 2ML VIAL ONE (15:28)
[2025-04-27] MEDS: HEPARIN (PORCINE) 1000 UNIT/ML 10 ML (CATH LAB USE ONLY) ONE (15:28)
[2025-04-27] MEDS: PHENYLEPHRINE 100MCG/ML 5ML SYR ONE (15:29)
--- NOTE | 2025-04-27 15:41 | Post Anesthesia Assessment ---
Date of Service April 27, 2025 Post Sedation Assessment Vital Signs Temp Pulse Pulse Resp BP Pulse Ox O2 Del Method 04/27/25 11:38 36.5 C 113 H 19 104/74 93 Room Air 04/27/25 09:00 Room Air 04/27/25 07:35 36.4 C L 61 19 124/72 97 Room Air 04/27/25 07:30 55 L 04/27/25 03:07 36.5 C 53 L 16 121/77 95 Room Air 04/26/25 23:13 36.6 C 67 18 121/77 97 Room Air 04/26/25 21:47 48 L 04/26/25 19:13 36.8 C 56 L 16 112/70 96 Room Air 04/26/25 16:06 36.4 C L 52 L 20 106/68 96 Room Air Recovery Score Activity: Moves 4 extremities Respiration: Deep Breath/Cough Circulation: +/-20% PreAnes Value Consciousness: Fully Awake Oxygen Saturation: > 92% On Room Air Discharge Sedation Level of Care: Fast Track Phase II Post Sedation Plan On clinical assessment, the patient appears to have tolerated the sedation without complications. Patient is recovering as anticipated. Patient will continue to be monitored by nursing and may be discharged when sedation discharge criteria are met per below protocol. Upon Completions of procedure up to 15 minutes continue every 5 minute vital signs and the P.A.R. score; then discharge to a Phase I or Fast Track to Phase II per the following guidelines: * Discharge Patient to appropriate Phase II area if PAR is 8 or greater or return to pre- procedure baseline. The post - procedure orders will be as dir ected. * If PAR score is less than 8 or not return to pre-procedure baseline then patient will follow Phase I monitoring till PAR is reached for Phase II. The Phase I may be done in procedure room or may call to secure a Phase I area. * If naloxone or flumazenil are used for reversal, hold in Phase I for continued monitoring from when last reversal dose was given for a minimum of 60 minutes or longer pending the nurse and/or physician discretion of patient condition before discharge to Phase II. Please call the Sedation Physician to re-evaluate and complete post-note for discharge to Phase II area. Do NOT discharge from procedure sedation or Phase 1 until post- sedation evaluation note is complete by procedure /sedation MD Sedation Discharge Instructions to be given to the patient at discharge to home. [facility] Procedure Codes (Charges) Indication for Procedure Indication for procedure: afib
[2025-04-27] MEDS: APIXABAN 5 MG TABLET PO ONE (17:20)
--- NOTE | 2025-04-27 22:59 | Hospitalist Progress Note ---
Date of Service April 27, 2025 Assessment & Plan (1) Atrial fibrillation: (2) Benign localized prostatic hyperplasia with lower urinary tract symptoms (LUTS): (3) SNHL (sensorineural hearing loss): Plan 69-year-old male with history of atrial fibrillation prevention with a rapid ventricular rate and fatigue and dizziness. This is been prolonged from his typical events. #Atrial fibrillation. Patient was given diltiazem in the emergency department without much improvement. Patient will be converted to metoprolol to tartrate 25 twice daily with as needed IV metoprolol for backup. Consideration of using intravenous digoxin if the patient has no improvement overnight. Patient will also have his magnesium checked his TSH checked and be given a gram of magnesium. Patient is started on therapeutic anticoagulation although his Parviz vas score is low he does seem to have more paroxysmal atrial fibs and places him at risk for thromboembolism. The patient is ordered a echocardiogram and cardiology consult will be considered if this is more persistent and stubborn. Heart rate returned to a fib on 04/27 Cardio stopped amiodarone Appreciate input from cardio. Now back in A fib. started multaq. #Elevated troponin this is likely demand ischemia in the face of his rapid rate. He has no cardiac symptoms or changes on EKG #BPH patient continues on fluvastatin and finasteride DVT prevention is therapeutic heparin dosing Admission and Anticipated Discharge Date Admission Date: April 25, 2025 Subjective 69 yo female reports no new symptoms aside from palpatations. Physical Exam Constitutional: WD/WN, vitals as above Respiratory: normal respiratory effort, lungs clear to auscultation Cardiovascular: RRR, no murmur, no edema Gastrointestinal (Abdomen): normal bowel sounds, soft, nontender, no hepatosplenomegaly Neurologic: PERRL, EOMI, accommodation nl, no face palsy, no dysarthria Psychiatric: A+Ox3, euthymic affect Results & Data Results & Data Vital Signs (Past 12 Hours) Vital Signs Temp Pulse Pulse Resp BP BP BP 04/27/25 21:11 36.5 C 138 H 16 101/70 04/27/25 20:11 36.4 C L 138 H 16 108/73 04/27/25 18:11 135 H 20 101/65 04/27/25 18:00 04/27/25 17:11 136 H 20 93/65 L 04/27/25 16:41 135 H 20 100/60 11/13/25 16:29 136 H 20 102/68 04/27/25 16:11 136 H 16 95/63 L 04/27/25 15:56 36.4 C L 137 H 20 102/69 04/27/25 15:44 135 H 109/61 04/27/25 15:00 140 H 04/27/25 11:38 36.5 C 113 H 19 104/74 Pulse Ox Pulse Ox O2 Del Method O2 Del Method 04/27/25 21:11 96 Room Air 04/27/25 20:11 96 Room Air 04/27/25 18:11 96 Room Air 04/27/25 18:00 96 Room Air 04/27/25 17:11 96 Room Air 04/27/25 16:41 92 Room Air 04/27/25 16:29 93 Room Air 04/27/25 16:11 93 Room Air 04/27/25 15:56 92 Room Air 04/27/25 15:44 04/27/25 15:00 04/27/25 11:38 93 Room Air PG Care Time/CCT Total # of Minutes Spent Total Time Spent with Patient: Total time spent is greater than 50% in coordination of care (as documented) at patient's floor/unit and/or counseling patient: Coding Level of Care Code 26996 SUB INP/OBS CARE 3/50MIN Diagnoses Atrial fibrillation I48.91 Benign localized prostatic hyperplasia with lower urinary tract symptoms (LUTS) N40.1 SNHL (sensorineural hearing loss) H90.5
[2025-04-28] MEDS: ONDANSETRON INJ 2 MG/ML 2 ML VIAL IV PRN (00:42)
[2025-04-28] MEDS: PROCHLORPERAZINE 10 MG in SYRINGE 8 ML IV ONE (04:21)
[2025-04-28 06:12] LABS: Hematocrit (blood only) 44.9 % (42.0-52.0); Hemoglobin 15.5 g/dL (14.0-18.0); Mean Corpuscular Hemoglobin 32.8 pg (25.0-34.0); Mean Corpuscular Volume 94.9 fL (80.0-100.0); Platelet Count 207 K/uL (130-400); RDW Standard Deviation 40.4 fL (36.4-46.3); Red Blood Count 4.73 M/uL (4.70-6.10); White Blood Count 8.04 K/ul (4.8-10.8)
[2025-04-28 06:31] LABS: Anion Gap 9.0 (3-11); Blood Urea Nitrogen 23.0 mg/dl (6-23); Carbon Dioxide 27.0 mmol/L (21-32); Chloride 105.0 mmol/L (98-107); Potassium 4.5 mmol/L (3.5-5.1); Sodium 141.0 mmol/L (136-145)
[2025-04-28 06:32] LABS: Calcium 9.4 mg/dl (8.6-10.3); Creatinine Clr Calc Pharmacy 65.2 ml/min; Glucose 122.0 mg/dl (70-99(Fasting)); Magnesium 1.9 mg/dl (1.7-2.4)
--- NOTE | 2025-04-28 08:25 | Electrocardiogram Report ---
Test Reason : Blood Pressure : */* mmHG Vent. Rate : 144 BPM Atrial Rate : 283 BPM P-R Int : * ms QRS Dur : 70 ms QT Int : 282 ms P-R-T Axes : 75 -20 104 degrees QTcB Int : 436 ms Atrial flutter with variable A-V block Left ventricular hypertrophy with repolarization abnormality ( R in aVL ) Abnormal ECG When compared with ECG of 08-Feb-2013 06:29, Atrial flutter has replaced Sinus rhythm ST abnormality is no longer present Confirmed by Joss Valladares ([id number]) on 04/28/2025 8:24:34 AM Referred By: Confirmed By: Joss Valladares
--- NOTE | 2025-04-28 08:37 | Electrocardiogram Report ---
Test Reason : Blood Pressure : */* mmHG Vent. Rate : 55 BPM Atrial Rate : 55 BPM P-R Int : 132 ms QRS Dur : 78 ms QT Int : 504 ms P-R-T Axes : -20 -20 128 degrees QTcB Int : 482 ms Sinus bradycardia Minimal voltage criteria for LVH, may be normal variant ( R in aVL ) Abnormal ECG When compared with ECG of 25-Apr-2025 16:05, (unconfirmed) Sinus rhythm has replaced Atrial flutter Vent. rate has decreased by 89 bpm T wave inversion more evident in Anterolateral leads Confirmed by Joss Valladares ([id number]) on 04/28/2025 8:37:14 AM Referred By: REFERRED SELF Confirmed By: Joss Valladares
[2025-04-28] MEDS: APIXABAN 5 MG TABLET PO SCH (08:39)
--- NOTE | 2025-04-28 09:43 | Electrocardiogram Report ---
Test Reason : Blood Pressure : */* mmHG Vent. Rate : 56 BPM Atrial Rate : 56 BPM P-R Int : 146 ms QRS Dur : 84 ms QT Int : 486 ms P-R-T Axes : 26 -10 117 degrees QTcB Int : 468 ms Sinus bradycardia Minimal voltage criteria for LVH, may be normal variant ( R in aVL ) ST elevation consider inferior injury or acute infarct Marked T wave abnormality consider anterolateral ischemia Abnormal ECG When compared with ECG of 26-Apr-2025 06:21, (unconfirmed) No significant change was found Confirmed by Joss Valladares ([id number]) on 04/28/2025 9:43:28 AM Referred By: REFERRED SELF Confirmed By: Joss Valladares
[2025-04-28] MEDS ORDERED: STAT IV Infusion **Titration per Protocol STA (11:43)
--- NOTE | 2025-04-28 12:53 | Cardiology Progress Note ---
Date of Service April 28, 2025 Assessment & Plan (1) Atrial fibrillation with rapid ventricular response: (2) Elevated troponin: (3) Coronary artery disease: (4) Asymmetric septal hypertrophy: (5) Anticoagulant long-term use: Plan 1. Atrial fibrillation: He has a long history of atrial fibrillation and has had worsening recently, both in frequency and duration. The episodes do not seem to be more symptomatic but are becoming bothersome due to their frequency. He had none on IV amiodarone but with discontinuation he went back into atrial fibrillation after 12 to 16 hours, which is not too surprising but does indicate that he has a significant burden without antiarrhythmic therapy. This increase in burden may be part of the natural history of atrial fibrillation, however with his echocardiographic abnormalities that may also play a part in the progression. Multaq has not been effective in controlling his atrial arrhythmia although may have made his atrial flutter more stable, which may be detrimental for heart rate control. I discussed options with him which include ongoing medical therapy but I do not want to use amiodarone for the long run due to toxicity and other agents are not likely to be very effective, doing a flutter ablation here understanding that he would probably still have atrial fibrillation which has been bothersome to him recently due to the frequency of it, versus arranging evaluation at [facility] or another location to consider ablation of atrial flutter and atrial fibrillation. I favor the latter approach and he is agreeable, however for the short-term we need to get his rhythm controlled. I am going to discontinue his Multaq, add diltiazem for rate control, and hopefully once the Multaq is metabolized he will have atrial fibrillation which we can more easily control rather than atrial flutter. 2. Elevated troponin: He did have a mildly elevated troponin, he has known coronary artery disease and his echocardiogram is abnormal. This appears to be due to demand ischemia. 3. Coronary disease: He has known coronary artery disease based on his history, however he does not have significant obstruction at this time. We should continue risk factor modification however. We should consider continue 4. Asymmetric septal hypertrophy: I am worried about amyloid, his total protein is not elevated but I did order the protein electrophoresis and other lab studies for it. We can consider a cardiac MRI as an outpatient. 5. Anticoagulation: His [id number] score is relatively low, but with his abnormal echo and his age I would recommend anticoagulation. He is on Eliquis now, which I would continue. Admission and Anticipated Discharge Date Admission Date: April 25, 2025 Subjective Although not terribly uncomfortable he does not feel well with his arrhythmia and feels short of breath with minimal activity. At rest he does not have shortness of breath or chest discomfort. He has been in atrial flutter since yesterday with a rapid heart rate. Physical Exam Physical Exam: Constitutional: Alert, cooperative and in no distress. HEENT: Unremarkable Neck: No jugular venous distention, carotid pulses are normal and equal bilaterally without bruits. Pulmonary: Clear to auscultation bilaterally. Cardiac: Regular fast rhythm with no murmur, gallop or rub. Abdomen: Soft, nontender with normal bowel sounds. Extremities: No edema. Neurologic: No focal findings. Skin: No rash, ecchymoses or petechiae. Results & Data Vital Signs (Past 12 Hours) Vital Signs Temp Pulse Pulse Resp BP Pulse Ox O2 Del Method 04/28/25 11:44 36.5 C 152 H 21 105/73 96 Room Air 04/28/25 09:00 Room Air 04/28/25 07:45 36.6 C 144 H 20 100/67 95 Room Air 04/28/25 07:40 144 H 04/28/25 04:18 36.7 C 136 H 18 105/72 96 Room Air 04/28/25 03:41 134 H 04/28/25 03:26 134 H Laboratory Results CBC 04/28/25 Range/Units 05:26 WBC 8.04 (4.8-10.8) K/ul RBC 4.73 (4.70-6.10) M/uL Hgb 15.5 (14.0-18.0) g/dL Hct 44.9 (42.0-52.0) % Plt Count 207 (130-400) K/uL Comprehensive Metabolic Panel 04/28/25 Range/Units 05:26 Sodium 141 (136-145) mmol/L Potassium 4.5 (3.5-5.1) mmol/L Chloride 105 (98-107) mmol/L Carbon Dioxide 27 (21-32) mmol/L BUN 23 (6-23) mg/dl Creatinine 1.24 (0.6-1.4) mg/dl Glucose 122 H (70-99(Fasting)) mg/dl Calcium 9.4 (8.6-10.3) mg/dl Intake and Output 04/27/25 04/28/25 04/28/25 22:59 06:59 14:59 Intake Total 0 / 901.866 500 / 901.866 Balance 0 / -798.134 500 / -798.134 Intake: IV 0 / 401.866 Heparin 07697 Unit/500 ml D5w 0 / 401.866 25,000 units In 500 ml @ 1,100 UNITS/HR 22 mls/hr IV .[id number] [facility] Rx#:[id number] Oral 500 / 500 Other: Weight 90.6 kg Weight Measurement Method Built in [facility] Diagnostic Findings Telemetry: Atrial flutter, heart rate 140-150 for more than 24 hours. PG Care Time/CCT Total # of Minutes Spent Total Time Spent with Patient: Total time spent is greater than 50% in coordination of care (as documented) at patient's floor/unit and/or counseling patient: Coding Level of Care Code 53894 SUB INP/OBS CARE 3/50MIN Diagnoses Atrial fibrillation with rapid ventricular response I48.91 Elevated troponin R79.89 Coronary artery disease I25.10 Asymmetric septal hypertrophy I51.7 Anticoagulant long-term use Z79.01
--- NOTE | 2025-04-28 22:31 | Hospitalist Progress Note ---
Date of Service April 28, 2025 Assessment & Plan (1) Atrial fibrillation: (2) Benign localized prostatic hyperplasia with lower urinary tract symptoms (LUTS): (3) SNHL (sensorineural hearing loss): Plan 69-year-old male with history of atrial fibrillation prevention with a rapid ventricular rate and fatigue and dizziness. This is been prolonged from his typical events. #Atrial fibrillation. Patient was given diltiazem in the emergency department without much improvement. Patient will be converted to metoprolol to tartrate 25 twice daily with as needed IV metoprolol for backup. Consideration of using intravenous digoxin if the patient has no improvement overnight. Patient will also have his magnesium checked his TSH checked and be given a gram of magnesium. Patient is started on therapeutic anticoagulation although his Parviz vas score is low he does seem to have more paroxysmal atrial fibs and places him at risk for thromboembolism. The patient is ordered a echocardiogram and cardiology consult will be considered if this is more persistent and stubborn. Heart rate returned to a fib on 04/27 Cardio stopped amiodarone Appreciate input from cardio. Remains in a fib, multaq stopped, goal would be rate controlled, will start diltiazem. This is a complex case as limited options for cardioversion medically, may need to have an ablatio at a tertiary center. WIll monitor. #Elevated troponin this is likely demand ischemia in the face of his rapid rate. He has no cardiac symptoms or changes on EKG #BPH patient continues on fluvastatin and finasteride DVT prevention is therapeutic heparin dosing Admission and Anticipated Discharge Date Admission Date: April 25, 2025 Subjective Patient is a 69 yo male with no symptoms at this time. He has been fast for most of the day. Physical Exam Constitutional: WD/WN, vitals as above Respiratory: normal respiratory effort, lungs clear to auscultation Cardiovascular: Rate/Rhythm: + tachycardic and + irregularly irregular Gastrointestinal (Abdomen): normal bowel sounds, soft, nontender, no hepatosplenomegaly Neurologic: PERRL, EOMI, accommodation nl, no face palsy, no dysarthria Psychiatric: A+Ox3, euthymic affect Results & Data Results & Data Vital Signs (Past 12 Hours) Vital Signs Temp Pulse Pulse Resp BP BP Pulse Ox 04/28/25 19:10 36.5 C 130 H 20 102/61 96 04/28/25 15:50 36.5 C 120 H 19 123/82 96 04/28/25 15:00 150 H 04/28/25 13:48 69 90/52 L 04/28/25 11:44 36.5 C 152 H 21 105/73 96 O2 Del Method 04/28/25 19:10 Room Air 04/28/25 15:50 Room Air 04/28/25 15:00 04/28/25 13:48 04/28/25 11:44 Room Air PG Care Time/CCT Total # of Minutes Spent Total Time Spent with Patient: Total time spent is greater than 50% in coordination of care (as documented) at patient's floor/unit and/or counseling patient: Coding Level of Care Code 05063 SUB INP/OBS CARE 3/50MIN Diagnoses Atrial fibrillation I48.91 Benign localized prostatic hyperplasia with lower urinary tract symptoms (LUTS) N40.1 SNHL (sensorineural hearing loss) H90.5
[2025-04-29 06:21] LABS: Hematocrit (blood only) 41.7 % (42.0-52.0); Hemoglobin 14.4 g/dL (14.0-18.0); Mean Corpuscular Hemoglobin 32.7 pg (25.0-34.0); Mean Corpuscular Volume 94.6 fL (80.0-100.0); Platelet Count 193 K/uL (130-400); RDW Standard Deviation 41.1 fL (36.4-46.3); Red Blood Count 4.41 M/uL (4.70-6.10); White Blood Count 7.78 K/ul (4.8-10.8)
[2025-04-29 06:38] LABS: Anion Gap 7.0 (3-11); Blood Urea Nitrogen 26.0 mg/dl (6-23); Calcium 8.9 mg/dl (8.6-10.3); Carbon Dioxide 28.0 mmol/L (21-32); Chloride 105.0 mmol/L (98-107); Creatinine Clr Calc Pharmacy 57.9 ml/min; Glucose 107.0 mg/dl (70-99(Fasting)); Potassium 4.2 mmol/L (3.5-5.1); Sodium 140.0 mmol/L (136-145)
--- NOTE | 2025-04-29 11:38 | Cardiology Progress Note ---
Date of Service April 29, 2025 Assessment & Plan (1) Atrial fibrillation with rapid ventricular response: (2) Elevated troponin: (3) Coronary artery disease: (4) Asymmetric septal hypertrophy: (5) Anticoagulant long-term use: Plan 1. Atrial fibrillation: He has a long history of atrial fibrillation and has had worsening recently, both in frequency and duration. The episodes do not seem to be more symptomatic but are becoming bothersome due to their frequency. He had none on IV amiodarone but with discontinuation he went back into atrial fibrillation after 12 to 16 hours, which is not too surprising but does indicate that he has a significant burden without antiarrhythmic therapy. This increase in burden may be part of the natural history of atrial fibrillation, however with his echocardiographic abnormalities that may also play a part in the progression. Multaq was not effective in controlling his atrial arrhythmia although may have made his atrial flutter more stable, which may be detrimental for heart rate control. With discontinuation of Multaq he did spontaneously convert to sinus rhythm and has remained there since around 2 AM. He is not on anything for rhythm control currently. I reviewed options with him which include ongoing medical therapy but I do not want to use amiodarone for the long run due to toxicity and other agents are not likely to be very effective, we could do a flutter ablation here (but not atrial fibrillation ablation) understanding that he would probably still have atrial fibrillation which has been bothersome to him recently due to the frequency of it although that would probably be easier to control than flutter, versus arranging evaluation at [facility] or another location to consider ablation of atrial flutter and atrial fibrillation together. I favor the latter approach and he is agreeable, however for the short-term we need to get his rig heart rate ht controlled, I do not think we can do much for rhythm control very easily in the short-term. I am going to add diltiazem for rate control, and hopefully this will help control rate during atrial fibrillation and perhaps during atrial flutter, but perhaps he will not have much difficulty with flutter off of antiarrhythmic therapy. 2. Elevated troponin: He did have a mildly elevated troponin, he has known coronary artery disease and his echocardiogram is abnormal. This appears to be due to demand ischemia. 3. Coronary disease: He has known coronary artery disease based on his history, however he does not have significant obstruction at this time. We should continue risk factor modification however. We should consider continue 4. Asymmetric septal hypertrophy: I am worried about amyloid, his total protein is not elevated but I did order the protein electrophoresis and other lab studies for it. These studies are pending, but he does not need to stay for the results. We can consider a cardiac MRI as an outpatient. 5. Anticoagulation: His [id number] score is relatively low, but with his abnormal echo and his age I would recommend anticoagulation. He is on Eliquis now, which I would continue. Admission and Anticipated Discharge Date Admission Date: April 25, 2025 Subjective He is feeling well this morning, he was aware of termination of his atrial arrhythmia during the night. Physical Exam Physical Exam: Constitutional: Alert, cooperative and in no distress. Pulmonary: Clear to auscultation bilaterally. Cardiac: Regular rhythm with no murmur, gallop or rub. Abdomen: Soft, nontender with normal bowel sounds. Extremities: No edema. Skin: No rash, ecchymoses or petechiae. Results & Data Vital Signs (Past 12 Hours) Vital Signs Temp Pulse Pulse Resp BP Pulse Ox O2 Del Method 04/29/25 08:13 36.5 C 68 16 113/69 97 Room Air 04/29/25 08:00 59 L 04/29/25 03:05 36.5 C 78 20 100/64 93 Room Air Laboratory Results CBC 04/29/25 Range/Units 05:56 WBC 7.78 (4.8-10.8) K/ul RBC 4.41 L (4.70-6.10) M/uL Hgb 14.4 (14.0-18.0) g/dL Hct 41.7 L (42.0-52.0) % Plt Count 193 (130-400) K/uL Comprehensive Metabolic Panel 04/29/25 Range/Units 05:56 Sodium 140 (136-145) mmol/L Potassium 4.2 (3.5-5.1) mmol/L Chloride 105 (98-107) mmol/L Carbon Dioxide 28 (21-32) mmol/L BUN 26 H (6-23) mg/dl Creatinine 1.36 (0.6-1.4) mg/dl Glucose 107 H (70-99(Fasting)) mg/dl Calcium 8.9 (8.6-10.3) mg/dl Intake and Output 04/28/25 04/29/25 04/29/25 22:59 06:59 14:59 Intake Total 644.083 / 779.833 135.75 / 779.833 Balance 644.083 / 779.833 135.75 / 779.833 Intake: IV 44.083 / 79.833 35.75 / 79.833 dilTIAZem HCL 125 mg In 44.083 / 79.833 35.75 / 79.833 Dextrose 5% 100 ml @ 0 MG/HR IV .Q0M [facility] Rx#:[id number] Oral 600 / 700 100 / 700 Other: # Unmeasured Voids 1 1 Weight 90 kg Weight Measurement Method Built in [facility] Diagnostic Findings Telemetry: Atrial flutter with 2-1 AV block, relatively good control on intravenous diltiazem with 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 He went back and forth several times briefly before terminating into sinus bradycardia at around 2 AM and he has remained in sinus rhythm. PG Care Time/CCT Total # of Minutes Spent Total Time Spent with Patient: Total time spent is greater than 50% in coordination of care (as documented) at patient's floor/unit and/or counseling patient: Coding Level of Care Code 20279 SUB INP/OBS CARE 3/50MIN Diagnoses Atrial fibrillation with rapid ventricular response I48.91 Elevated troponin R79.89 Coronary artery disease I25.10 Asymmetric septal hypertrophy I51.7 Anticoagulant long-term use Z79.01
--- NOTE | 2025-04-29 23:33 | Hospitalist Progress Note ---
Date of Service April 29, 2025 Assessment & Plan (1) Atrial fibrillation: (2) Benign localized prostatic hyperplasia with lower urinary tract symptoms (LUTS): (3) SNHL (sensorineural hearing loss): Plan 69-year-old male with history of atrial fibrillation prevention with a rapid ventricular rate and fatigue and dizziness. This is been prolonged from his typical events. #Atrial fibrillation. Patient was given diltiazem in the emergency department without much improvement. Patient will be converted to metoprolol to tartrate 25 twice daily with as needed IV metoprolol for backup. Consideration of using intravenous digoxin if the patient has no improvement overnight. Patient will also have his magnesium checked his TSH checked and be given a gram of magnesium. Patient is started on therapeutic anticoagulation although his Parviz vas score is low he does seem to have more paroxysmal atrial fibs and places him at risk for thromboembolism. The patient is ordered a echocardiogram and cardiology consult will be considered if this is more persistent and stubborn. Heart rate returned to a fib on 04/27 Cardio stopped amiodarone Appreciate input from cardio. Multaq appeared to have promoted patient to an atrial flutter. Plan will be to transition hm to diltiazem. Now that multaq is out of his symtem, his a fib was rate controlled with diltiazem. Overnight, his rythym reverted back to sinus. This is a complex case as limited options for cardioversion medically, may need to have an ablatio at a tertiary center as an outpatient Will monitor. #Elevated troponin this is likely demand ischemia in the face of his rapid rate. He has no cardiac symptoms or changes on EKG #BPH patient continues on fluvastatin and finasteride DVT prevention is therapeutic heparin dosing Admission and Anticipated Discharge Date Admission Date: April 25, 2025 Subjective 69 yo male reports no new symptoms. Physical Exam Constitutional: WD/WN, vitals as above Respiratory: normal respiratory effort, lungs clear to auscultation Cardiovascular: RRR, no murmur, no edema Rate/Rhythm: regular rate and regular rhythm Gastrointestinal (Abdomen): normal bowel sounds, soft, nontender, no hepatosplenomegaly Neurologic: PERRL, EOMI, accommodation nl, no face palsy, no dysarthria Psychiatric: A+Ox3, euthymic affect Results & Data Results & Data Vital Signs (Past 12 Hours) Vital Signs Temp Pulse Pulse Resp BP BP Pulse Ox 04/29/25 22:54 36.4 C L 78 20 112/72 94 04/29/25 19:54 36.6 C 58 L 18 115/70 93 04/29/25 15:45 36.9 C 71 16 111/66 96 04/29/25 15:00 53 L 04/29/25 12:39 36.8 C 70 18 123/72 98 O2 Del Method 04/29/25 22:54 Room Air 04/29/25 19:54 Room Air 04/29/25 15:45 Room Air 04/29/25 15:00 04/29/25 12:39 Room Air PG Care Time/CCT Total # of Minutes Spent Total Time Spent with Patient: Total time spent is greater than 50% in coordination of care (as documented) at patient's floor/unit and/or counseling patient: Coding Level of Care Code 22382 SUB INP/OBS CARE 3/50MIN Diagnoses Atrial fibrillation I48.91 Benign localized prostatic hyperplasia with lower urinary tract symptoms (LUTS) N40.1 SNHL (sensorineural hearing loss) H90.5
[2025-04-30 06:07] LABS: Hematocrit (blood only) 40.8 % (42.0-52.0); Hemoglobin 14.3 g/dL (14.0-18.0); Mean Corpuscular Hemoglobin 33.1 pg (25.0-34.0); Mean Corpuscular Volume 94.4 fL (80.0-100.0); Platelet Count 181 K/uL (130-400); RDW Standard Deviation 40.5 fL (36.4-46.3); Red Blood Count 4.32 M/uL (4.70-6.10); White Blood Count 5.67 K/ul (4.8-10.8)
[2025-04-30 06:24] LABS: Anion Gap 4.0 (3-11); Blood Urea Nitrogen 24.0 mg/dl (6-23); Calcium 8.9 mg/dl (8.6-10.3); Carbon Dioxide 29.0 mmol/L (21-32); Chloride 107.0 mmol/L (98-107); Creatinine Clr Calc Pharmacy 68.4 ml/min; Glucose 103.0 mg/dl (70-99(Fasting)); Potassium 4.4 mmol/L (3.5-5.1); Sodium 140.0 mmol/L (136-145)
--- NOTE | 2025-04-30 11:36 | Discharge Summary ---
Discharge Summary Date of Service April 30, 2025 Principal Dx & Hospital Course #1 = Principal Diagnosis (1) Atrial fibrillation: (2) Benign localized prostatic hyperplasia with lower urinary tract symptoms (LUTS): (3) SNHL (sensorineural hearing loss): Plan 69-year-old male with history of atrial fibrillation prevention with a rapid ventricular rate and fatigue and dizziness. This is been prolonged from his typical events. #Atrial fibrillation. Patient was given diltiazem in the emergency department without much improvement. Patient will be converted to metoprolol to tartrate 25 twice daily with as needed IV metoprolol for backup. Consideration of using intravenous digoxin if the patient has no improvement overnight. Patient will also have his magnesium checked his TSH checked and be given a gram of magnesiu m. Patient is started on therapeutic anticoagulation although his Parviz vas score is low he does seem to have more paroxysmal atrial fibs and places him at risk for thromboembolism. The patient is ordered a echocardiogram and cardiology consult will be considered if this is more persistent and stubborn. Heart rate returned to a fib on 04/27 Cardio stopped amiodarone Appreciate input from cardio. Multaq appeared to have promoted patient to an atrial flutter. Plan will be to transition hm to diltiazem. Now that christatheresa is out of his symtem, his a fib was rate controlled with diltiazem. Overnight, his rythym reverted back to sinus. This is a complex case as limited options for cardioversion medically, may need to have an ablatio at a tertiary center as an outpatient Will monitor. #Elevated troponin this is likely demand ischemia in the face of his rapid rate. He has no cardiac symptoms or changes on EKG #BPH patient continues on fluvastatin and finasteride DVT prevention is therapeutic heparin dosing Admission HPI Per Admitting Provider 69-year-old male with a past medical history of A-fib, hyperglycemia, palpitations, who presents to the ER for feeling his heart racing and irregular. He notes he that he has a history of A-fib with a brief hospital stay in 2012.. Patient is having consistent recurrent palpitations as he feels his atrial fibrillation usually in the morning lasting 2 hours resolving with rest. Patient states his family has a history of atrial fibrillation has had 2 brothers who have had cardiac ablation but he cannot recall where they had that done. The patient has not been on any anticoagulation in the past but does recount a story where his father was taken off anticoagulation for atrial fibrillation and promptly of his stroke. patient denies any recent bleeding or bruising on the melena he has no chest pain associate with his atrial fibrillation but he does complain of some dizziness In the emergency department EKG shows atrial fibrillation versus flutter rate of 142, chest x-ray was without heart failure Discharge Exam Constitutional WD/WN, vitals as above Respiratory normal respiratory effort, lungs clear to auscultation Cardiovascular RRR, no murmur, no edema Rate/Rhythm: regular rate, regular rhythm, + tachycardic and + irregularly irregular Gastrointestinal (Abdomen) normal bowel sounds, soft, nontender, no hepatosplenomegaly Neurologic PERRL, EOMI, accommodation nl, no face palsy, no dysarthria Psychiatric A+Ox3, euthymic affect Discharge Plan Discharge Items Patient Disposition: Home - Self-Care Reason For Visit: AFIB RVR WITH SYMPTOMS Discharge Diagnosis: A Fib RVR with symptoms Condition on Discharge: Critical Activity: Resume your previous activity Non-emergency contact: Primary Care Provider Call non-emergency contact if: you have any medication questions Follow-up/Referrals: Tre Hopper MD [Primary Care Provider] - Diet: Regular Addtl Attending Provider Instructions: Recommend followup with [facility] for an ablation. Recommend close followup with PCP in 1-2 weeks Take first dose of Eliquis tonight. Take first dose of cardizem tomorrow morning. Pending Studies at Discharge: No Stand-Alone Forms: My [facility], Smoking Cessation Medications and DC Order Prescriptions: New Eliquis 5 mg Tablet 5 mg PO BID Qty: 60 0RF diltiazem HCl 180 mg Capsule,Extended Release 24hr 180 mg PO QAM Qty: 30 0RF Continued PreserVision AREDS-2 250-90-40-1 mg Capsule 1 tab PO BID finasteride 5 mg tablet 5 mg PO HS alfuzosin 10 mg tablet extended release 24 hr 10 mg PO HS tadalafil [Cialis] 20 mg tablet 20 mg PO DIRECTED PRN (Reason: sexual activity) Rx Instructions: administer approximately 30min before sexual activity; do not use more than 1 dose per 24hrs Discharge Orders: Discharge Order (Routine); Ordered 04/30/25 Ordered By: Abram Paris Admission Data Admit Date/Time: 04/25/25 17:33 Attending Provider: Abram Paris Admit Provider: Ajit Woodall Primary Care Provider: Tre Hopper V. Other Providers: Lucas Eubanks; Joss Valladares Hospital Stay Data Consultations 04/25/25 17:02 ED Decision to Admit Stat 04/26/25 00:43 Consult Cardiology Routine Procedures Performed Operation Date: 04/27/25 13:30 Actual Procedures p Cath, Coronaries ONLY (no LV) - Jacques Gaona MD, PhD s Cineradiography w/Routine Exam - Jacques Gaona MD, PhD Diagnostic Imagining Performed 04/27/25 05:55 CL Cath Imgs for PACS use only Routine Pending Results Patient Have Any Pending Studies at Discharge: No Discharge Instructions Given to Patient (Per Discharging Provider) Recommend followup with [facility] for an ablation. Recommend close followup with PCP in 1-2 weeks Take first dose of Eliquis tonight. Take first dose of cardizem tomorrow morning. Coding Diagnoses Atrial fibrillation I48.91 Benign localized prostatic hyperplasia with lower urinary tract symptoms (LUTS) N40.1 SNHL (sensorineural hearing loss) H90.5
[2025-04-30 11:50] VITALS: RESP 20; TEMP 97.9; O2SAT 96
[2025-04-30 12:02] VITALS: BP 113/69; PULSE 60
[2025-05-02 07:02] LABS: Protein, Urine Random 15 mg/dL (5-25); Ur Albumin % 41 %; Ur Alpha-1-globulin % 5 %; Ur Alpha-2-globulin % 17 %; Ur Beta Globulin % 17 %; Ur Gamma Globulin % 21 %; Ur Protein/Creat Ratio mg/g 94 mg/g creat (25-148); Urine Abnormal Protein Band 1 DNR mg/dL (NONE DETECTED); Urine Abnormal Protein Band 2 DNR mg/dL (NONE DETECTED); Urine Abnormal Protein Band 3 DNR mg/dL (NONE DETECTED)
[2025-05-02 10:22] LABS: Albumin 3.5 g/dL (3.8-4.8); Beta-1-Globulin 0.3 g/dL (0.4-0.6); Gamma Globulin 0.7 g/dL (0.8-1.7); Total Protein 5.5 g/dL (6.1-8.1)
== END 2025-04-30 13:00 | disposition home or self-care (01) | DRG 309 ==
LOC: ED 16:00 → 4W 17:33 → SUATTDRO 17:33 → 4W 18:09
PROC: CLB.CCO (2025-04-27 13:30)